=== PATIENT | female | born 1990 | race Caucasian/White ===

== ENCOUNTER 2022-04-20 19:48 | Emergency (ER) | payer MEDICAID, OTHER ==
[~2022-04-20] VITALS: Ht 162.6 cm; Wt 67.9 kg
[~2022-04-20 19:48] MED LIST: ARIP15TA3 PO; ARIP400S3 IM; BUPR150T8 PO; GABA-534 PO; HYDR-3686 PO; NICO-631 TD; TOPI200T16 PO; TRAZ-251 PO
[2022-04-20 20:11] VITALS: BP 110/67
[2022-04-22] MEDS ORDERED: TRAZ-251 PO (19:54)
[2022-04-22] MEDS ORDERED: BUPR150T8 PO ×2 (19:54→20:06)
[2022-04-22] MEDS ORDERED: TOPI200T16 PO (19:54)
[2022-04-22] MEDS ORDERED: GABA-534 PO (19:54)
[2022-04-22] MEDS ORDERED: HYDR-3686 PO (19:54)
[2022-04-22] MEDS ORDERED: ARIP15TA3 PO (19:58)
[2022-04-22] MEDS ORDERED: ARIP400S3 IM ×3 (20:12→20:22)
== END 2022-04-20 23:44 | disposition left against medical advice (07) ==
LOC: ER 19:49
DX: R44.0 Auditory hallucinations (principal); Z53.21 Procedure and treatment not carried out due to patient leaving prior to being seen by health care provider